=== PATIENT | female | born 1930 | race Caucasian/White ===

== ENCOUNTER → 2016-12-02 | Outpatient (CLI) | payer OTHER ==
[~2016-12-02] MED LIST: CLTP PO; EZET10TA41; MELO15TA3; MULT-513 PO; PRN10125; [UNRECOGNIZED DRUG - OTHER] PO
[2016-12-02 19:16] LABS: ALT/SGPT 22 U/L (12-78); AST/SGOT 21 U/L (15-37); BLOOD UREA NITROGEN 23 mg/dl (7-18); BUN/CREATININE RATIO 25.8 (10-20); CALCIUM 9.2 mg/dl (8.5-10.1); CARBON DIOXIDE 22 mmol/L (21-32); CHLORIDE 101 mmol/L (98-107); CHOLESTEROL 204 mg/dl (0-200); CHOLESTEROL/HDL RATIO 3.6; GLUCOSE 100 mg/dl (70-99); HDL CHOLESTEROL 56 mg/dl; LDL CHOLESTEROL CALCULATED 121 mg/dl; POTASSIUM 4.5 mmol/L (3.5-5.1); SODIUM 134 mmol/L (136-145); TRIGLYCERIDES 133 mg/dl (0-150); VERY LOW DENSITY LIPOPROT CALC 27 mg/dl
== END | disposition home or self-care (01) ==
LOC: C.LABSPEC 17:55
PROVIDERS: ATTEND Family Medicine
DX: I10 Essential (primary) hypertension (principal); E78.2 Mixed hyperlipidemia

== ENCOUNTER → 2017-04-07 | Outpatient (CLI) | payer OTHER ==
[2017-04-07 14:20] LABS: ALT/SGPT 21 U/L (12-78); AST/SGOT 9 U/L (15-37); BLOOD UREA NITROGEN 32 mg/dl (7-18); BUN/CREATININE RATIO 29.2 (10-20); CALCIUM 9.3 mg/dl (8.5-10.1); CARBON DIOXIDE 29 mmol/L (21-32); CHLORIDE 104 mmol/L (98-107); GLUCOSE 107 mg/dl (70-99); POTASSIUM 3.9 mmol/L (3.5-5.1); SODIUM 140 mmol/L (136-145)
[2017-04-07 14:23] LABS: ALB/GLOB RATIO 0.9 (0.9-2); ALKALINE PHOSPHATASE 65 U/L (45-117)
== END | disposition home or self-care (01) ==
LOC: C.LABPVFM 10:18
PROVIDERS: ATTEND Nurse Practitioner
DX: I10 Essential (primary) hypertension (principal)

== ENCOUNTER → 2017-07-01 | Outpatient (CLI) | payer OTHER ==
--- NOTE | 2017-07-01 15:55 | DIAGNOSTIC IMAGING REPORT ---
RIGHT KNEE 3 VIEWS HISTORY: KNEE PAIN Right COMPARISON: None. FINDINGS: There is no fracture or dislocation. Chondrocalcinosis. Proximal lower leg soft tissue swelling. The bones are osteopenic. No significant knee effusion. Moderate tricompartmental osteoarthritis. No radiopaque foreign bodies. IMPRESSION: Moderate tricompartmental osteoarthritis within the right knee. No acute fracture or dislocation. Electronically signed by: Wes Cruz M.D. 07/01/2017 3:53 PM Dictated Date/Time: 07/01/2017 3:52 PM
== END | disposition home or self-care (01) ==
LOC: C.RADPV 15:08
PROVIDERS: ATTEND Nurse Practitioner Family
DX: M25.569 Pain in unspecified knee (principal)

== ENCOUNTER → 2017-08-11 | Outpatient (CLI) | payer OTHER ==
[2017-08-11 13:33] LABS: BLOOD UREA NITROGEN 26 mg/dl (7-18); BUN/CREATININE RATIO 18.9 (10-20); CALCIUM 10.2 mg/dl (8.5-10.1); CARBON DIOXIDE 28 mmol/L (21-32); CHLORIDE 97 mmol/L (98-107); CREATININE 1.38 mg/dl (0.60-1.20); GLUCOSE 111 mg/dl (70-99); POTASSIUM 3.7 mmol/L (3.5-5.1); SODIUM 133 mmol/L (136-145)
== END | disposition home or self-care (01) ==
LOC: C.LABPVFM 09:05
PROVIDERS: ATTEND Nurse Practitioner
DX: I10 Essential (primary) hypertension (principal); M19.90 Unspecified osteoarthritis, unspecified site; R26.9 Unspecified abnormalities of gait and mobility

== ENCOUNTER → 2017-12-15 | Outpatient (CLI) | payer OTHER ==
[2017-12-15 13:15] LABS: ALBUMIN 3.4 gm/dl (3.4-5.0); ALT/SGPT 20 U/L (12-78); BLOOD UREA NITROGEN 39 mg/dl (7-18); CALCIUM 9.3 mg/dl (8.5-10.1); CARBON DIOXIDE 31 mmol/L (21-32); CREATININE 1.17 mg/dl (0.60-1.20); GLUCOSE 116 mg/dl (70-99); POTASSIUM 4.2 mmol/L (3.5-5.1); SODIUM 138 mmol/L (136-145)
[2017-12-15 13:17] LABS: HEMOGLOBIN A1C 5.7 % (4.5-5.6)
[2017-12-15 13:18] LABS: ALKALINE PHOSPHATASE 54 U/L (45-117); AST/SGOT 11 U/L (15-37); TOTAL PROTEIN 7.6 gm/dl (6.4-8.2)
== END | disposition home or self-care (01) ==
LOC: C.LABPVFM 09:07
PROVIDERS: ATTEND Nurse Practitioner
DX: R73.01 Impaired fasting glucose (principal); I10 Essential (primary) hypertension

== ENCOUNTER 2018-02-16 08:44 | Emergency (ER) | payer OTHER ==
[~2018-02-16] VITALS: Ht 162.6 cm; Wt 94.0 kg
[2018-02-16 08:50] VITALS: TEMP 36.7; Ht 162.6 cm; Wt 94.0 kg
[2018-02-16] MEDS ORDERED: ONDANSETRON INJ 2 MG/ML 2 ML VIAL IV STA (08:52)
[2018-02-16] MEDS ORDERED: FENTANYL CITRATE INJ 50 MCG/1 ML 2 ML VIAL IV ONE (09:00)
[2018-02-16 09:17] LABS: BASO % 0.2 %; BASO ABS # 0.01 K/uL (0-0.2); EOS % 1.1 %; EOS ABS # 0.07 K/uL (0-0.5); LYMPH % 28.9 %; LYMPH ABS # 1.87 K/uL (1.2-3.4); MEAN CELL VOLUME 96.7 fL (80-100); MEAN CORPUSCULAR HEMOGLOBIN 33.1 pg (25-34); MEAN CORPUSCULAR HGB CONC 34.2 g/dl (32-36); MEAN PLATELET VOLUME 9.4 fL (7.4-10.4); MONO % 9.7 %; MONO ABS # 0.63 K/uL (0.11-0.59); NEUT % 60.1 %; PLATELET COUNT 216 K/uL (130-400); RED CELL DISTRIBUTION WIDTH CV 13.5 % (11.5-14.5); WHITE BLOOD COUNT 6.48 K/uL (4.8-10.8)
[2018-02-16] MEDS ORDERED: LISI-787 PO (09:24)
[2018-02-16 09:50] LABS: ALBUMIN 3.6 gm/dl (3.4-5.0); CALCIUM 9.8 mg/dl (8.5-10.1)
--- NOTE | 2018-02-16 09:52 | DIAGNOSTIC IMAGING REPORT ---
PA CHEST RADIOGRAPH AND LEFT LATERAL DECUBITUS AND SUPINE AP RADIOGRAPHS OF THE ABDOMEN CLINICAL HISTORY: Abdominal pain. COMPARISON STUDY: Chest radiograph December 25, 2006. FINDINGS: Severe degenerative changes of the bilateral glenohumeral joints with deformity of both humeral heads, greater on the right, is noted. There is no pneumothorax. Hazy left basilar opacity is noted. There is pulmonary vascular congestion. Calcific density projecting over the heart could reflect mitral annular calcification or calcifications within the left lower lobe. There is no free air. The suspected clips are noted. The bowel gas pattern is normal. There is mild dextroscoliosis of the lumbar spine. IMPRESSION: 1. No free air or evidence of bowel obstruction. 2. Moderate cardiomegaly with pulmonary vascular congestion. 3. Apparent hazy left basilar opacity. Artifact is favored. However, a small left pleural effusion with left basilar opacity would be difficult to exclude. Electronically signed by: Isaac Carreno M.D. 02/16/2018 9:51 AM Dictated Date/Time: 02/16/2018 9:48 AM
--- NOTE | 2018-02-16 09:54 | DIAGNOSTIC IMAGING REPORT ---
R PELVIS/UNILATERAL HIP 2-3VIEWS CLINICAL HISTORY: Right groin and hip pain. COMPARISON: None FINDINGS: Sacroiliac joints and symphysis pubis are intact. No fracture is identified within the pelvis or hips. There is mild osteoarthritis of both hips. IMPRESSION: 1. No acute fracture within the pelvis or hips. 2. Mild osteoarthritis of the hips. Electronically signed by: Isaac Carreno M.D. 02/16/2018 9:52 AM Dictated Date/Time: 02/16/2018 9:51 AM
[2018-02-16 09:56] LABS: CREATININE 1.24 mg/dl (0.60-1.20)
[2018-02-16] MEDS ORDERED: MoRPHine SULFATE 2 MG/ML CARP IV STA (10:17)
--- NOTE | 2018-02-16 11:03 | EMERGENCY ROOM VISIT NOTE ---
History Report prepared by Israelibbabatunde: Jorge Maher Under the Supervision of: Dr. Dylan Hahn M.D. First contact with patient: 08:45 Stated Complaint: GROIN PAIN History of Present Illness The patient is a 87 year old white female with a past medical history of HTN, HLD, and osteoporosis who presents to the ED with a cc of constant right groin pain beginning 30 minutes ago. Her pain began while transitioning from a wheelchair to her walker. She states that she felt a pain when she twisted her hips. Patient denies falling. Her pain worsens with bending her right knee. Positive constipation. Negative nausea, vomiting, urinary symptoms, or diarrhea. She normally ambulates with a walker. Source of History: patient Onset: 30 minutes ago Position: other (right groin) Timing: constant Modifying Factors (Worsening): other (bending right knee) Associated Symptoms: No nausea, No vomiting, No diarrhea, No urinary symptoms Note: Positive constipation. Review of Systems See HPI for pertinent positives and negatives. A total of ten systems were reviewed and were otherwise negative. Past Medical & Surgical Medical Problems: (1) HTN (hypertension) Family History No pertinent family history stated. Social History Alcohol Use: none Occupation Status: retired Current/Historical Medications Scheduled Lisinopril/Hctz (Zestoretic 20MG/12.5MG), 1 TAB PO QAM Allergies Coded Allergies: No Known Allergies (Verified , 02/16/18) Physical Exam Vital Signs Date Time Temp Pulse Resp B/P (MAP) Pulse Ox O2 Delivery O2 Flow Rate FiO2 02/16/18 16:47 78 20 120/59 97 Room Air 02/16/18 15:13 74 20 128/63 96 Room Air 02/16/18 13:38 79 18 122/68 95 Room Air 02/16/18 10:30 75 16 113/65 94 Nasal Cannula 2.0 02/16/18 08:50 36.7 84 16 182/104 95 Room Air Physical Exam GENERAL: Awake, alert, well-appearing. Appears to be in mild pain. HENT: Normocephalic, atraumatic. EYES: Normal conjunctiva. Sclera non-icteric. PERRL. No anisocoria. NECK: Supple. No nuchal rigidity. FROM. RESPIRATORY: CTAB, no rhonchi, wheezing, crackles CARDIAC: RRR, no MRG ABDOMEN: Soft, NTND, BS+ MSK: No chest wall TTP. Decreased right hip flexion and extension secondary to pain. Right sided groin pain. Good flexion and extension at the right ankle. SP/ DP/Tib nerves intact. No pain with internal rotation at the hip. Mild pain with external rotation. Leg does not appear shortened. NEURO: GCS 15, CN 2-12 intact, moves all 4s on command SKIN: No rash or jaundice noted. Medical Decision & Procedures ER Provider Diagnostic Interpretation: Radiology results as stated below per my review and radiologist interpretation: R PELVIS/UNILATERAL HIP 2-3VIEWS FINDINGS: Sacroiliac joints and symphysis pubis are intact. No fracture is identified within the pelvis or hips. There is mild osteoarthritis of both hips. IMPRESSION: 1. No acute fracture within the pelvis or hips. 2. Mild osteoarthritis of the hips. Electronically signed by: Isaac Carreno M.D. 02/16/2018 9:52 AM PA CHEST RADIOGRAPH AND LEFT LATERAL DECUBITUS AND SUPINE AP RADIOGRAPHS OF THE ABDOMEN FINDINGS: Severe degenerative changes of the bilateral glenohumeral joints with deformity of both humeral heads, greater on the right, is noted. There is no pneumothorax. Hazy left basilar opacity is noted. There is pulmonary vascular congestion. Calcific density projecting over the heart could reflect mitral annular calcification or calcifications within the left lower lobe. There is no free air. The suspected clips are noted. The bowel gas pattern is normal. There is mild dextroscoliosis of the lumbar spine. IMPRESSION: 1. No free air or evidence of bowel obstruction. 2. Moderate cardiomegaly with pulmonary vascular congestion. 3. Apparent hazy left basilar opacity. Artifact is favored. However, a small left pleural effusion with left basilar opacity would be difficult to exclude. Electronically signed by: Isaac Carreno M.D. 02/16/2018 9:51 AM R KNEE 3 VIEWS FINDINGS: Chondrocalcinosis is noted. Moderate to severe lateral compartment joint space narrowing is noted with extensive osteophytosis. There is also moderate joint space narrowing with osteophytosis within the patellofemoral compartment. No fracture or suspicious lesion is identified. Suprapatellar calcific densities suggest joint bodies. A large right knee joint effusion is noted without lipohemarthrosis. IMPRESSION: 1. No acute fracture. 2. Severe osteoarthritis within the lateral and patellofemoral compartments of the right knee. 3. Large right knee joint effusion with suspected loose bodies. Electronically signed by: Isaac Carreno M.D. 02/16/2018 11:[address] SCAN OF THE ABDOMEN AND PELVIS WITHOUT IV CONTRAST FINDINGS: Lung bases: The heart is mildly enlarged and there is a moderate pericardial effusion. The coronary arteries and mitral annulus are densely calcified. There is a trace right pleural effusion. Patchy airspace opacities are present in the lower lobes. Liver: The unenhanced liver is normal in size, contour, and attenuation. There is no intrahepatic biliary ductal dilatation. Gallbladder: Surgically absent noting clips in the gallbladder fossa. Spleen: Normal in size and attenuation. There is a 9 mm peripherally calcified splenic artery aneurysm seen at the splenic hilum. Pancreas: The unenhanced pancreas is moderately atrophic and grossly unremarkable. Adrenal glands: A low-attenuation left adrenal nodule is suggested, and likely represents a fat-containing adenoma. The right adrenal gland is normal as visualized. Kidneys: The unenhanced kidneys are atrophic and without hydronephrosis. There are least 2 nonobstructing left renal calculi which measure up to 6 mm. 2 punctate nonobstructing calculi are seen in the right kidney. There is no evidence of contour deforming renal mass lesion. Abdominal vasculature: The abdominal aorta is normal in course and caliber noting advanced atherosclerotic calcification. Bowel: There is mild colonic diverticulosis without CT evidence of acute diverticulitis. No bowel obstruction is seen there are scattered fluid-filled loops of small bowel. The appendix is well-visualized and normal. Peritoneum: There is no intraperitoneal free air or abdominal ascites. Lymphadenopathy: None. Pelvic viscera: The bladder is decompressed and grossly unremarkable. The uterus and adnexa are normal as visualized. Skeletal structures: The skeletal structures are osteopenic. There is advanced lumbosacral spondylosis and scoliosis. No lytic or blastic lesions are seen. IMPRESSION: 1. Suboptimal examination without oral and IV contrast. The examination is also degraded by streak and motion artifact. 2. Cardiomegaly and moderate pericardial effusion. 3. There is a trace right pleural effusion. Bibasilar airspace opacities are nonspecific and could represent atelectasis versus a mild infectious/inflammatory pneumonitis. Clinical correlation will be required. 4. There are fluid-filled loops of normal caliber small bowel which demonstrates small air/fluid levels. This is nonspecific and may represent a mild enteritis. Clinical correlation will be required. 5. No bowel obstruction is seen. 6. Bilateral nonobstructing renal calculi. 7. Mild colonic diverticulosis without CT evidence of acute diverticulitis. 8. Additional findings as above. Electronically signed by: Edwin Mckeon M.D. 02/16/2018 11:04 AM Laboratory Results 02/16/18 09:10 Red Blood Count 3.93, Mean Corpuscular Volume 96.7, Mean Corpuscular Hemoglobin 33.1, Mean Corpuscular Hemoglobin Concent 34.2, Mean Platelet Volume 9.4, Neutrophils (%) (Auto) 60.1, Lymphocytes (%) (Auto) 28.9, Monocytes (%) (Auto) 9.7, Eosinophils (%) (Auto) 1.1, Basophils (%) (Auto) 0.2, Neutrophils # (Auto) 3.90, Lymphocytes # (Auto) 1.87, Monocytes # (Auto) 0.63, Eosinophils # (Auto) 0.07, Basophils # (Auto) 0.01 02/16/18 09:10 Test 02/16/18 09:10 02/16/18 10:18 White Blood Count 6.48 K/uL (4.8-10.8) Red Blood Count 3.93 M/uL (4.2-5.4) Hemoglobin 13.0 g/dL (12.0-16.0) Hematocrit 38.0 % (37-47) Mean Corpuscular Volume 96.7 fL (80-100) Mean Corpuscular Hemoglobin 33.1 pg (25-34) Mean Corpuscular Hemoglobin Concent 34.2 g/dl (32-36) Platelet Count 216 K/uL (130-400) Mean Platelet Volume 9.4 fL (7.4-10.4) Neutrophils (%) (Auto) 60.1 % Lymphocytes (%) (Auto) 28.9 % Monocytes (%) (Auto) 9.7 % Eosinophils (%) (Auto) 1.1 % Basophils (%) (Auto) 0.2 % Neutrophils # (Auto) 3.90 K/uL (1.4-6.5) Lymphocytes # (Auto) 1.87 K/uL (1.2-3.4) Monocytes # (Auto) 0.63 K/uL (0.11-0.59) Eosinophils # (Auto) 0.07 K/uL (0-0.5) Basophils # (Auto) 0.01 K/uL (0-0.2) RDW Standard Deviation 48.0 fL (36.4-46.3) RDW Coefficient of Variation 13.5 % (11.5-14.5) Immature Granulocyte % (Auto) 0.0 % Immature Granulocyte # (Auto) 0.00 K/uL (0.00-0.02) Anion Gap 8.0 mmol/L (3-11) Est Creatinine Clear Calc Drug Dose 35.5 ml/min Estimated GFR () 45.2 Estimated GFR (Non- 39.0 BUN/Creatinine Ratio 26.2 (10-20) Calcium Level 9.8 mg/dl (8.5-10.1) Total Bilirubin 0.9 mg/dl (0.2-1) Direct Bilirubin 0.2 mg/dl (0-0.2) Aspartate Amino Transf (AST/SGOT) 10 U/L (15-37) Alanine Aminotransferase (ALT/SGPT) 19 U/L (12-78) Alkaline Phosphatase 65 U/L (45-117) Total Protein 8.0 gm/dl (6.4-8.2) Albumin 3.6 gm/dl (3.4-5.0) Lipase 183 U/L (73-393) Urine Color YELLOW Urine Appearance CLEAR (CLEAR) Urine pH 5.5 (4.5-7.5) Urine Specific [place] 1.018 (1.000-1.030) Urine Protein NEG (NEG) Urine Glucose (UA) NEG (NEG) Urine Ketones NEG (NEG) Urine Occult Blood NEG (NEG) Urine Nitrite NEG (NEG) Urine Bilirubin NEG (NEG) Urine Urobilinogen NEG (NEG) Urine Leukocyte Esterase SMALL (NEG) Urine WBC (Auto) 1-5 /hpf (0-5) Urine RBC (Auto) 0-4 /hpf (0-4) Urine Hyaline Casts (Auto) 1-5 /lpf (0-5) Urine Epithelial Cells (Auto) 20-30 /lpf (0-5) Urine Bacteria (Auto) NEG (NEG) Laboratory results reviewed by me Medications Administered Medications (Trade) Dose Ordered Sig/Hemant Route Start Time Stop Time Status Last Admin Dose Admin Ondansetron HCl (Zofran Inj) 4 mg NOW STAT IV 02/16/18 08:52 02/16/18 08:54 DC 02/16/18 09:20 4 MG Fentanyl Citrate (Fentanyl Inj) 25 mcg NOW ONCE IV 02/16/18 09:00 02/16/18 09:01 DC 02/16/18 09:20 25 MCG Morphine Sulfate (MoRPHine SULFATE INJ) 2 mg NOW STAT IV 02/16/18 10:17 02/16/18 10:19 DC 02/16/18 10:30 2 MG Morphine Sulfate (MoRPHine SULFATE INJ) 2 mg NOW STAT IV 02/16/18 16:09 02/16/18 16:10 DC 02/16/18 16:13 2 MG ED Course 0847: The patient was evaluated in room A12B. A complete history and physical exam was performed. 1015: I reassessed the patient. She appears comfortable. 1140: I updated the patient on her test results. She will undergo an ambulatory trial. 1238: The patient was referred to [facility]. 1500: The patient was signed out to Dr. Whitfield at the change of shift pending acceptance to [facility]. Medical Decision Nursing notes reviewed. Ancillary studies and prior records reviewed. The patient is a 87 year old white female with a past medical history of HTN, HLD, and osteoporosis who presents to the ED with a cc of constant right groin pain beginning 30 minutes ago. Differential diagnosis: Etiologies such as fracture, dislocation, neurovascular compromise, compartment syndrome, soft tissue injury, as well as others were entertained. Patient was seen and evaluated the bedside. Patient reportedly was about to get her hair done at which point she had stood up to use her walker and she felt discomfort in the right groin. Patient states that she has had difficulty with moving her right lower extremity. Patient is neuro intact distally although does have some decreased flexion and extension at the hip secondary to pain although she has got good flexion extension at the ankle and has no sensory deficit. Patient only has mild pain with external rotation and appears to be at length compared to the other leg. Patient did blood work completed along with plain films. Patient's plain films are fairly unremarkable. The patient was still complaining of some intermittent right-sided groin pain. Patient is mildly obese as there is a possibility of a hernia or even a more subtle deficit of the hip or pelvis. The patient was given additional pain medication did have a CT of the abdomen pelvis completed. CT showed no obvious fracture. Patient may have a questional enteritis. Diverticulosis without diverticulitis. The patient was ambulated and did so with only mild discomfort but was able to walk at baseline. I did have case picker discuss options with the patient. The patient does have some home health for some skin care but no PT or OT. The referral was made to [facility] for further evaluation and treatment. Patient does not require a PT or OT eval. Patient did film did show a joint effusion with some loose bodies. Given the acute onset of symptoms less likely gout or Lyme's disease. The patient has no warmth and there is no redness to the area. I did speak with the on-call orthopedist who stated that they would follow-up as an outpatient but nothing to do outside of rest, ice, compression, and elevation therapy. An Ritchie wrap was applied. Patient was accepted and was transferred to [facility]. Medication Reconcilliation Current Medication List: was personally reviewed by me Blood Pressure Screening Patient's blood pressure: Normal blood pressure Blood pressure disposition: Did not require urgent referral Consults Time Called: 1350 Consulting Physician: Dr. Jones - Orthopedics Returned Call: 1400 Discussed the patient's case. Dr. Jones feels that the patient's symptoms are less likely gout or infection. He feels that the patient could follow up as an outpatient potentially. Impression Primary Impression: Hip pain Additional Impression: Knee effusion Scribe Attestation The scribe's documentation has been prepared under my direction and personally reviewed by me in its entirety. I confirm that the note above accurately reflects all work, treatment, procedures, and medical decision making performed by me. Departure Information Dispostion Transfer Acute Care Facility Referrals Maral Rowe C.R.N.P (PCP) Problem Qualifiers Primary Impression: Hip pain Laterality: right Qualified Codes: M25.551 - Pain in right hip Additional Impression: Knee effusion Laterality: right Qualified Codes: M25.461 - Effusion, right knee
--- NOTE | 2018-02-16 11:05 | DIAGNOSTIC IMAGING REPORT ---
CT SCAN OF THE ABDOMEN AND PELVIS WITHOUT IV CONTRAST CLINICAL HISTORY: Right lower quadrant abdominal pain. COMPARISON STUDY: Abdominal radiograph dated 02/16/2018. TECHNIQUE: CT scan of the abdomen and pelvis is performed from the lung bases to the proximal femora. Images are reviewed in the axial, sagittal, and coronal planes. IV contrast was not administered for this examination as per the referring clinician. Note that the examination was performed and significant suboptimal fashion without oral and IV contrast. The examination is also degraded by motion artifact, large body habitus, and by streak artifact from the body wall abutting the CT gantry as well as the arms which could not be elevated above the abdomen. A dose lowering technique was utilized adhering to the principles of ALARA. CT DOSE: 1107.68 mGycm FINDINGS: Lung bases: The heart is mildly enlarged and there is a moderate pericardial effusion. The coronary arteries and mitral annulus are densely calcified. There is a trace right pleural effusion. Patchy airspace opacities are present in the lower lobes. Liver: The unenhanced liver is normal in size, contour, and attenuation. There is no intrahepatic biliary ductal dilatation. Gallbladder: Surgically absent noting clips in the gallbladder fossa. Spleen: Normal in size and attenuation. There is a 9 mm peripherally calcified splenic artery aneurysm seen at the splenic hilum. Pancreas: The unenhanced pancreas is moderately atrophic and grossly unremarkable. Adrenal glands: A low-attenuation left adrenal nodule is suggested, and likely represents a fat-containing adenoma. The right adrenal gland is normal as visualized. Kidneys: The unenhanced kidneys are atrophic and without hydronephrosis. There are least 2 nonobstructing left renal calculi which measure up to 6 mm. 2 punctate nonobstructing calculi are seen in the right kidney. There is no evidence of contour deforming renal mass lesion. Abdominal vasculature: The abdominal aorta is normal in course and caliber noting advanced atherosclerotic calcification. Bowel: There is mild colonic diverticulosis without CT evidence of acute diverticulitis. No bowel obstruction is seen there are scattered fluid-filled loops of small bowel. The appendix is well-visualized and normal. Peritoneum: There is no intraperitoneal free air or abdominal ascites. Lymphadenopathy: None. Pelvic viscera: The bladder is decompressed and grossly unremarkable. The uterus and adnexa are normal as visualized. Skeletal structures: The skeletal structures are osteopenic. There is advanced lumbosacral spondylosis and scoliosis. No lytic or blastic lesions are seen. IMPRESSION: 1. Suboptimal examination without oral and IV contrast. The examination is also degraded by streak and motion artifact. 2. Cardiomegaly and moderate pericardial effusion. 3. There is a trace right pleural effusion. Bibasilar airspace opacities are nonspecific and could represent atelectasis versus a mild infectious/inflammatory pneumonitis. Clinical correlation will be required. 4. There are fluid-filled loops of normal caliber small bowel which demonstrates small air/fluid levels. This is nonspecific and may represent a mild enteritis. Clinical correlation will be required. 5. No bowel obstruction is seen. 6. Bilateral nonobstructing renal calculi. 7. Mild colonic diverticulosis without CT evidence of acute diverticulitis. 8. Additional findings as above. Electronically signed by: Edwin Mckeon M.D. 02/16/2018 11:04 AM Dictated Date/Time: 02/16/2018 10:52 AM
--- NOTE | 2018-02-16 11:35 | DIAGNOSTIC IMAGING REPORT ---
R KNEE 3 VIEWS CLINICAL HISTORY: Right knee pain. No recent trauma. COMPARISON: Right knee radiographs July 01, 2017. FINDINGS: Chondrocalcinosis is noted. Moderate to severe lateral compartment joint space narrowing is noted with extensive osteophytosis. There is also moderate joint space narrowing with osteophytosis within the patellofemoral compartment. No fracture or suspicious lesion is identified. Suprapatellar calcific densities suggest joint bodies. A large right knee joint effusion is noted without lipohemarthrosis. IMPRESSION: 1. No acute fracture. 2. Severe osteoarthritis within the lateral and patellofemoral compartments of the right knee. 3. Large right knee joint effusion with suspected loose bodies. Electronically signed by: Isaac Carreno M.D. 02/16/2018 11:34 AM Dictated Date/Time: 02/16/2018 11:32 AM
--- NOTE | 2018-02-16 16:05 | EMERGENCY ROOM VISIT NOTE ---
ED Visit Note First contact with patient: 16:04 Patient was seen/evaluated by Dr. Hahn and was set for transfer to [facility]. Patient had increase in pain prior to discharge. Ordered and additional dose of Morphine 2 mg for pain, see his note for complete work up.
[2018-02-16] MEDS ORDERED: MoRPHine SULFATE 4 MG/ML 1 ML CARP\\VIAL IV STA (16:09)
[2018-02-16 16:47] VITALS: BP 120/59; PULSE 78; O2SAT 97
== END 2018-02-16 16:48 ==
LOC: EDBD 08:44 → C.EDA 08:45
DX: M25.551 Pain in right hip (principal); M17.11 Unilateral primary osteoarthritis, right knee; R10.30 Lower abdominal pain, unspecified; M25.461 Effusion, right knee; K57.90 Diverticulosis of intestine, part unspecified, without perforation or abscess without bleeding; N20.0 Calculus of kidney; I51.7 Cardiomegaly; I10 Essential (primary) hypertension

== ENCOUNTER → 2018-02-23 | Outpatient (CLI) | payer OTHER ==
[~2018-02-23] MED LIST changes: -CLTP PO; -EZET10TA41; +LISI-787 PO; -MELO15TA3; -MULT-513 PO; -PRN10125; -[UNRECOGNIZED DRUG - OTHER] PO
--- NOTE | 2018-02-23 11:57 | DIAGNOSTIC IMAGING REPORT ---
R LOWER EXT JOINT WITHOUT CLINICAL HISTORY: 87 years-old Female presenting with R/O INSUFFICIENCY RT HIP. TECHNIQUE: Multisequence, multiplanar MR imaging of the right hip was performed without the use of intravenous contrast. IV contrast: None. COMPARISON: Plain radiographs from 02/16/2018. FINDINGS: Localizer images: Unremarkable. Multilevel degenerative changes of the lower lumbar spine. On resting intensity is normal. No bony edema. Degenerative changes of the pubic symphysis. Sacrum intact. Significant edema noted in the right iliopsoas muscle. The myotendinous junction appears disrupted concerning for tear. There is a mortise edematous soft tissue at the insertion at the lesser trochanter. Slight distention of the right iliopsoas bursa. Mild edema noted in the calcaneus muscle and abductor musculature bilaterally, right greater than left. Edema tracks along the interfascial planes of the anterolateral hip. Right hip joint congruent. Joint spaces preserved. No large effusion. No gross labral abnormality. Limited evaluation of intrapelvic contents demonstrates a uterine fibroid. The bladder is normal. No gross lymphadenopathy. IMPRESSION: 1. Findings most concerning for myotendinous tear of the right iliopsoas muscle. Significant surrounding muscle edema. 2. No evidence of a fracture, including no evidence of insufficiency fracture. 3. No advanced degenerative changes of the hips. Electronically signed by: Tee Cuellar M.D. 02/23/2018 11:55 AM Dictated Date/Time: 02/23/2018 11:07 AM
--- NOTE | 2018-02-24 15:11 | CODING QUERY NO DIAGNOSIS ---
TREATMENT RENDERED WITHOUT A DIAGNOSIS 30 To promote full compliance with coding requirements relating to patient care, physician participation is requested in all cases of wine cellar worker uncertainty. Please assist us with providing a diagnosis/symptom for the test(s) below: A diagnosis/symptom was not documented on your Order. A valid diagnosis/symptom is required to bill all insurances. Please remember that we are unable to code a diagnosis of rule out, probable, possible, questionable, or suspected. DOS 02/23/18 Tests that require a diagnosis: * MRI LOWER EXT DIAGNOSIS: *ON YOUR ORDER YOU HAVE R/O INSUFFICENCY RT HIP, WE CANNOT CODE A RULE OUT, PLEASE ADD DX CODE Provider Signature: Date: Thank you Garima Connolly [facility] Information Management Once completed, please kindly fax back to [phone] For questions please call [phone]
== END | disposition home or self-care (01) ==
LOC: C.MRI 09:50
PROVIDERS: ATTEND Registered Nurse
DX: M25.551 Pain in right hip (principal); R26.89 Other abnormalities of gait and mobility

== ENCOUNTER → 2018-05-31 | Outpatient (CLI) | payer OTHER ==
[2018-05-31 13:34] LABS: BLOOD UREA NITROGEN 35 mg/dl (7-18); CALCIUM 9.5 mg/dl (8.5-10.1); CARBON DIOXIDE 29 mmol/L (21-32); CREATININE 1.06 mg/dl (0.60-1.20); GLUCOSE 106 mg/dl (70-99); POTASSIUM 4.1 mmol/L (3.5-5.1); SODIUM 136 mmol/L (136-145)
== END | disposition home or self-care (01) ==
LOC: C.LABPVFM 10:15
PROVIDERS: ATTEND Nurse Practitioner
DX: R73.01 Impaired fasting glucose (principal)